=== PATIENT | female | born 1980 | race African-American/Black ===

== ENCOUNTER 2016-12-20 09:01 | Emergency (ER) | payer OTHER ==
[~2016-12-20] VITALS: Ht 165.1 cm; Wt 56.7 kg
[~2016-12-20 09:01] MED LIST: ACYCLOVIR400 MG ORAL; HYDROCODON-ACE1 EA15 ORAL; IBUPROFEN400 MG ORAL; IBUPROFEN600 MG ORAL; KEFLEX500 MG ORAL; METROGEL-VAGINA70 G1 VAGIN; NORCO 5-325 TA1 EAC1 ORAL; PENICILLIN V P500 MG PO; PRENATAL 19 TA1 EAC1 PO; TRAMADOL HCL50 MG ORAL; TYLENOL EXTRA500 MG ORAL; ZOFRAN ODT4 MG ORAL
[2016-12-20] MEDS ORDERED: NKM (09:10)
[2016-12-20 09:46] VITALS: BP 100/56
[2016-12-20 09:50] LABS: BASOPHILS % (AUTO) 0.9 % (0.0-2.0); EOSINOPHILS % (AUTO) 0.2 % (0.0-3.0); MEAN CORPUSCULAR HEMOGLOBIN 25.8 PG (27.0-31.0); MEAN CORPUSCULAR HGB CONC 31.2 G/DL (32.0-36.0); MEAN CORPUSCULAR VOLUME 83 FL (80-99); MEAN PLATELET VOLUME 6.4 FL (6.5-10.1); MONOCYTES % (AUTO) 3.8 % (1.0-10.0); NEUTROPHILS % (AUTO) 80.2 % (45.0-75.0); PLATELET COUNT 261 K/UL (150-450); RED BLOOD COUNT 5.01 M/UL (4.20-5.40); RED CELL DISTRIBUTION WIDTH 13.1 % (11.6-14.8); WHITE BLOOD COUNT 7.2 K/UL (4.8-10.8)
[2016-12-20 09:54] LABS: APPEARANCE,URINE CLEAR; KETONES,URINE 4+ (NEGATIVE); LEUKOCYTE ESTERASE ,URINE NEGATIVE (NEGATIVE); NITRITE,URINE NEGATIVE (NEGATIVE); PH,URINE 5 (4.5-8.0); PROTEIN,URINE 1+ (NEGATIVE); UROBILINOGEN,URINE NORMAL MG/DL (0.0-1.0)
[2016-12-20 10:05] LABS: ALANINE AMINOTRANSFERASE 17 U/L (12-78); ALBUMIN/GLOBULIN RATIO 1.2 (1.0-2.7); ANION GAP 18 mmol/L (5-15); ASPARTATE AMINO TRANSFERASE 19 U/L (15-37); BACTERIA,URINE FEW /HPF; CALCIUM 8.8 MG/DL (8.5-10.1); CARBON DIOXIDE 19 MMOL/L (21-32); CHLORIDE 103 MMOL/L (98-107); CREATININE 1.1 MG/DL (0.55-1.30); GLOMERULAR FILTRATION RATE > 60 mL/min (>60); LIPASE 201 U/L (73-393); MUCUS,URINE FEW /LPF (NONE/OCC); POTASSIUM 4.1 MMOL/L (3.5-5.1); RBC,URINE 0-2 /HPF (0 - 2); SODIUM 140 MMOL/L (136-145); SQUAMOUS EPITHELIAL CELL,UR FEW /LPF (NONE/OCC); TOTAL PROTEIN 7.4 G/DL (6.4-8.2); WBC,URINE 0-2 /HPF (0 - 2)
[2016-12-20] MEDS ORDERED: ZOFRAN4 MG ORAL (10:34)
[2016-12-20] MEDS ORDERED: AMOXICILLIN500 MG ORAL (10:34)
[2016-12-20 11:05] VITALS: BP 98/50
[2016-12-20 11:35] VITALS: BP 103/54
--- NOTE | 2016-12-20 12:44 | Emergency Room Report ---
History of Present Illness General Chief Complaint: Generalized Weakness Source: Patient Present Illness HPI Patient presents emergency department today with febrile illness generalized weakness sore throat. She states that she's not eating or drinking very well. There are time she eats or drinks it hurts her throat. She is breast-feeding. She denies any vomiting but complains of nausea. Denies any dysuria urinary frequency. Symptoms noted to be moderate. No other modifying factors. No other associated signs and symptoms. No other complaints were noted. Allergies: Coded Allergies: CLINDAMYCIN (Verified Allergy, Mild, itching, 11/02/15) Patient History Past Medical History: none Past Surgical History: none Pertinent Family History: none Social History: Denies: smoking, alcohol use, drug use Last Menstrual Period: deliver baby 6 months ago and breast feeding Reviewed Nursing Documentation: PMH: Agreed, PSxH: Agreed Nursing Documentation-PMH Past Medical History: No Stated History Review of Systems All Other Systems: negative except mentioned in HPI Physical Exam Vital Signs Date Time Temp Pulse Resp B/P (MAP) Pulse Ox O2 Delivery O2 Flow Rate FiO2 12/20/16 09:06 97.5 73 18 119/68 98 Room Air Sp02 EP Interpretation: reviewed, normal General Appearance: normal inspection, well appearing, no apparent distress, alert Head: atraumatic Eyes: bilateral eye normal inspection ENT: normal ENT inspection, hearing grossly normal, normal voice, dry mucus membranes, pharyngeal erythema Neck: normal inspection, full range of motion, supple, no bony tend Respiratory: normal inspection, lungs clear, normal breath sounds, no respiratory distress, no retraction, no wheezing Cardiovascular #1: regular rate, rhythm, no edema Gastrointestinal: normal inspection, normal bowel sounds, non tender, soft, no guarding, no hernia Genitourinary: no CVA tenderness Musculoskeletal: normal inspection, back normal, normal range of motion Neurologic: normal inspection, alert, responsive, speech normal Psychiatric: normal inspection, judgement/insight normal, mood/affect normal Skin: normal inspection, normal color, no rash Medical Decision Making Diagnostic Impression: Primary Impression: Acute pharyngitis Additional Impressions: Dehydration Episode of generalized weakness ER Course Patient presents emergency department and generalized weakness decreased oral intake. Differential diagnoses include acute infectious process, pharyngitis, UTI, dehydration, mononucleosis just to name a few.Given the severity of the patient's presentation I felt this is a highly complex patient. This patient required extensive workup. Patient laboratory workup was not impressive. Patient's posterior pharynx does appear to be inflamed. Patient was given fluids improvement in symptoms. I felt it was reasonable given patient antibiotics for her pharyngitis. Patient was given a prescription for amoxicillin.Patient is advised to follow up with primary doctor in 2-3 days and return the emergency room for any worsening symptoms and as needed. Labs Test 12/20/16 09:35 White Blood Count 7.2 K/UL (4.8-10.8) Red Blood Count 5.01 M/UL (4.20-5.40) Hemoglobin 12.9 G/DL (12.0-16.0) Hematocrit 41.5 % (37.0-47.0) Mean Corpuscular Volume 83 FL (80-99) Mean Corpuscular Hemoglobin 25.8 PG (27.0-31.0) Mean Corpuscular Hemoglobin Concent 31.2 G/DL (32.0-36.0) Red Cell Distribution Width 13.1 % (11.6-14.8) Platelet Count 261 K/UL (150-450) Mean Platelet Volume 6.4 FL (6.5-10.1) Neutrophils (%) (Auto) 80.2 % (45.0-75.0) Lymphocytes (%) (Auto) 15.0 % (20.0-45.0) Monocytes (%) (Auto) 3.8 % (1.0-10.0) Eosinophils (%) (Auto) 0.2 % (0.0-3.0) Basophils (%) (Auto) 0.9 % (0.0-2.0) Urine Color Pale yellow Urine Appearance Clear Urine pH 5 (4.5-8.0) Urine Specific [place] 1.025 (1.005-1.035) Urine Protein 1+ (NEGATIVE) Urine Glucose (UA) Negative (NEGATIVE) Urine Ketones 4+ (NEGATIVE) Urine Occult Blood 1+ (NEGATIVE) Urine Nitrite Negative (NEGATIVE) Urine Bilirubin Negative (NEGATIVE) Urine Urobilinogen Normal MG/DL (0.0-1.0) Urine Leukocyte Esterase Negative (NEGATIVE) Urine RBC 0-2 /HPF (0 - 2) Urine WBC 0-2 /HPF (0 - 2) Urine Squamous Epithelial Cells Few /LPF (NONE/OCC) Urine Bacteria Few /HPF (NONE) Urine Mucus Few /LPF (NONE/OCC) Urine HCG, Qualitative Negative Sodium Level 140 MMOL/L (136-145) Potassium Level 4.1 MMOL/L (3.5-5.1) Chloride Level 103 MMOL/L (98-107) Carbon Dioxide Level 19 MMOL/L (21-32) Anion Gap 18 mmol/L (5-15) Blood Urea Nitrogen 14 mg/dL (7-18) Creatinine 1.1 MG/DL (0.55-1.30) Estimat Glomerular Filtration Rate > 60 mL/min (>60) Glucose Level 55 MG/DL (74-106) Calcium Level 8.8 MG/DL (8.5-10.1) Total Bilirubin 0.7 MG/DL (0.2-1.0) Aspartate Amino Transf (AST/SGOT) 19 U/L (15-37) Alanine Aminotransferase (ALT/SGPT) 17 U/L (12-78) Alkaline Phosphatase 65 U/L (46-116) Total Protein 7.4 G/DL (6.4-8.2) Albumin 4.1 G/DL (3.4-5.0) Globulin 3.3 g/dL Albumin/Globulin Ratio 1.2 (1.0-2.7) Lipase 201 U/L (73-393) Last Vital Signs Date Time Temp Pulse Resp B/P (MAP) Pulse Ox O2 Delivery O2 Flow Rate FiO2 12/20/16 11:35 97.5 100 17 103/54 100 Room Air Status: improved Disposition: HOME, SELF-CARE Condition: Stable Scripts Amoxicillin* (AMOXIL*) 500 Mg Capsule 500 MG ORAL THREE TIMES A DAY, #21 CAP Prov: THOMPSON COVINGTON M.D. 12/20/16 Ondansetron (Zofran) 4 Mg Tablet 4 MG ORAL Q6H Y for Nausea & Vomiting, #10 TAB 0 Refills Prov: THOMPSON COVINGTON M.D. 12/20/16 Patient Instructions: Dehydration, Adult, [id number], Pharyngitis, Easy-to- Read THOMPSON COVINGTON M.D. Dec 20, 2016 12:44
--- NOTE | 2016-12-20 16:57 | Diagnostic Imaging Report ---
Indication: COUGH Technique: One view of the chest Comparison: none Findings: Lungs and pleural spaces are clear. Heart size is normal. Impression: No acute process
== END 2016-12-20 11:35 | disposition home or self-care (01) ==
LOC: EMR 09:31
DX: J02.9 Acute pharyngitis, unspecified (principal); E86.0 Dehydration; R53.1 Weakness
CPT/HCPCS: 36415; 71010; 80053; 81003; 81025; 83690; 85025; 96361; 96374; 96375; 99284; J2405

== ENCOUNTER 2017-07-16 09:46 | Emergency (ER) | payer OTHER ==
[~2017-07-16] VITALS: Ht 165.1 cm; Wt 54.4 kg
[~2017-07-16 09:46] MED LIST changes: +AMOXICILLIN500 MG ORAL; +NKM; +ZOFRAN4 MG ORAL
[2017-07-16 10:11] VITALS: BP 108/70
[2017-07-16] MEDS ORDERED: traMADol 50mg tab ORAL ONE (10:15)
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
[2017-07-16] MEDS ORDERED: IBUPROFEN600 MG ORAL (12:00)
[2017-07-16] MEDS ORDERED: ROBAXIN500 MG PO (12:00)
[2017-07-16] MEDS ORDERED: TRAMADOL HCL50 MG ORAL (12:00)
--- NOTE | 2017-07-16 12:01 | Diagnostic Imaging Report ---
Indication: Neck Pain Findings: 3 views of the cervical spine were obtained. C5-6 and C6-7 demonstrate moderate to disc space narrowing with endplate osteophyte formation and slight curvature abnormality with the lordosis. There is no acute fracture appreciated. Open-mouth view is negative. No soft tissue swelling is identified. IMPRESSION: No acute injury appreciated Degenerative disc disease at C5-6 and C6-7. Degree is unexpected given the age of the patient.
[2017-07-16 12:16] VITALS: BP 104/68
== END 2017-07-16 12:19 | disposition home or self-care (01) ==
LOC: EMR 10:15
DX: S13.4XXA Sprain of ligaments of cervical spine, initial encounter (principal); V43.52XA Car driver injured in collision with other type car in traffic accident, initial encounter; Y92.410 Unspecified street and highway as the place of occurrence of the external cause
CPT/HCPCS: 72040; 99283

== ENCOUNTER 2017-11-08 00:47 | Emergency (ER) | payer OTHER ==
[~2017-11-08] VITALS: Ht 165.1 cm; Wt 54.4 kg
[~2017-11-08 00:47] MED LIST changes: +ROBAXIN500 MG PO
[2017-11-08 01:00] VITALS: BP 111/72
[2017-11-08] MEDS ORDERED: Morphine Sulfate 4mg/ml Inj (IV USE ONLY) IV ONE (01:15)
--- NOTE | 2017-11-08 01:17 | Emergency Room Report ---
History of Present Illness General Chief Complaint: Back Pain-No Injury Source: Patient Present Illness HPI Is a 37-year-old female with no cerumen past medical history. She has a history of back pain but symptom worsen the last few days. Pain is diffuse mostly in the lower back and right side. No radiation. Pain is severe 10 out of 10. Her time walking because of the pain. No unconscious bowel or urine. No trauma. No fever chills. No urinary complaint. Movement makes it worse Allergies: Coded Allergies: CLINDAMYCIN (Verified Allergy, Mild, itching, 11/02/15) Patient History Past Medical History: see triage record, old chart reviewed Past Surgical History: other Pertinent Family History: none Social History: Denies: smoking Last Menstrual Period: Sep Now: No Immunizations: other Reviewed Nursing Documentation: PMH: Agreed; PSxH: Agreed Nursing Documentation-PMH Past Medical History: No Stated History Review of Systems Eye: Denies: eye pain, blurred vision ENT: Denies: ear pain, nose congestion, throat swelling Respiratory: Denies: cough, shortness of breath Cardiovascular: Denies: chest pain, palpitations Gastrointestinal: Denies: abdominal pain, diarrhea, nausea, vomiting Musculoskeletal: Reports: back pain; Denies: joint pain Skin: Denies: rash Neurological: Denies: headache, numbness Endocrine: Denies: increased thirst, increased urine Hematologic/Lymphatic: Denies: easy bruising All Other Systems: negative except mentioned in HPI Physical Exam Vital Signs Date Time Temp Pulse Resp B/P (MAP) Pulse Ox O2 Delivery O2 Flow Rate FiO2 11/08/17 00:49 99.1 76 16 111/72 100 Room Air 99.1 vitals normal Sp02 EP Interpretation: reviewed, normal General Appearance: well appearing, no apparent distress, alert Head: normocephalic, atraumatic Eyes: bilateral eye PERRL, bilateral eye EOMI ENT: hearing grossly normal, normal pharynx Neck: full range of motion, supple, no meningismus Respiratory: chest non-tender, lungs clear, normal breath sounds Cardiovascular #1: regular rate, rhythm, no murmur Gastrointestinal: normal bowel sounds, non tender, no mass, no organomegaly, no bruit, non-distended Musculoskeletal: back normal - Diffuse lower back tenderness, mostly right, gait/station normal, normal range of motion Neurologic: alert, oriented x3 Psychiatric: mood/affect normal Skin: warm/dry Medical Decision Making Diagnostic Impression: Primary Impression: Back pain Qualified Codes: M54.5 - Low back pain ER Course Patient with back pain. No evidence of cauda equina syndrome, spinal epidural abscess or neoplastic process. No infection. Better now. We'll discharge home. CT/MRI/US Diagnostic Results CT/MRI/US Diagnostic Results : Imaging Test Ordered: CT lumbar spine Impression negative per radiologist Last Vital Signs Date Time Temp Pulse Resp B/P (MAP) Pulse Ox O2 Delivery O2 Flow Rate FiO2 11/08/17 00:49 99.1 76 16 111/72 100 Room Air 99.1 Status: improved Disposition: HOME, SELF-CARE Condition: Stable Scripts Ibuprofen* (MOTRIN*) 600 Mg Tablet 600 MG ORAL THREE TIMES A DAY, #30 TAB 0 Refills Prov: FILEMON CAM M.D. 11/08/17 Hydrocodone/Acetaminophen 5-325* (HYDROCODONE/ACETAMINOPHEN 5-325*) 1 Each Tablet 1 TAB ORAL Q6H PRN for For Pain, #20 TAB 0 Refills Prov: FILEMON CAM M.D. 11/08/17 Patient Instructions: Back Pain, Adult Additional Instructions: Follow-up with your doctor in 7 days. Return if symptom worsen. FILEMON CAM M.D. Nov 08, 2017 01:17
[2017-11-08] MEDS ORDERED: Norco 5mg/325mg tab ORAL ONE (01:30)
[2017-11-08 01:39] LABS: APPEARANCE,URINE CLEAR; BILIRUBIN, URINE NEGATIVE (NEGATIVE); COLOR,URINE PALE YELLOW; GLUCOSE, URINE (UA) NEGATIVE (NEGATIVE); KETONES,URINE 1+ (NEGATIVE); LEUKOCYTE ESTERASE ,URINE NEGATIVE (NEGATIVE); NITRITE,URINE NEGATIVE (NEGATIVE); PH,URINE 8 (4.5-8.0); PROTEIN,URINE NEGATIVE (NEGATIVE); UROBILINOGEN,URINE NORMAL MG/DL (0.0-1.0)
[2017-11-08] MEDS ORDERED: Morphine Sulfate 2mg/ml Inj IM ONE (02:15)
[2017-11-08] MEDS ORDERED: Isovue-300 100ml vial INJ PRN (02:15)
--- NOTE | 2017-11-08 03:16 | Diagnostic Imaging Report ---
EXAM: CT Lumbar Spine Without Intravenous Contrast CLINICAL HISTORY: BK PAIN TECHNIQUE: Axial computed tomography images of the lumbar spine without intravenous contrast. CTDI is 11 mGy and DLP is 386 mGy-cm. One or more of the following dose reduction techniques were used: automated exposure control, adjustment of the mA and/or kV according to patient size, use of iterative reconstruction technique. COMPARISON: CT abdomen and pelvis dated 04/15/13. FINDINGS: Vertebrae: Unremarkable. No acute fracture. Discs/spinal canal/neural foramina: No acute findings. No spinal canal stenosis. Soft tissues: Unremarkable. Intraperitoneal space: There is moderate free fluid in the pelvis. IMPRESSION: No acute findings in the lumbar spine.
[2017-11-08] MEDS ORDERED: IBUPROFEN600 MG ORAL (03:42)
[2017-11-08] MEDS ORDERED: HYDROCODON-ACE1 EA15 ORAL (03:42)
[2017-11-08 03:55] VITALS: BP 111/72
[2017-11-08 03:59] VITALS: BP 111/72
== END 2017-11-08 03:59 | disposition home or self-care (01) ==
LOC: EDBD 00:47 → EDUNIT# 00:47 → EMR 01:18
DX: M54.5 Low back pain (principal)
CPT/HCPCS: 72131; 80307; 81003; 81025; 99284